=== PATIENT | female | born 1995 | race Caucasian/White ===

== ENCOUNTER 2020-01-18 17:06 | Emergency (ER) | payer MEDICAID ==
[~2020-01-18] VITALS: Ht 160 cm; Wt 70.3 kg
--- NOTE | 2020-01-18 18:00 | NUR ---
Patient ambulated with stable gait. A/Ox4. Patient came for c/o symptoms. Denies any n/v/d.
[2020-01-18 18:43] LABS: *BILIRUBIN,URIN NEGATIVE (NEGATIVE); *CLARITY,URINE CLEAR (CLEAR); *COLOR,URINE YELLOW (YELLOW); *KETONES,URINE NEGATIVE (NEGATIVE); *UROBILINOGEN,URINE 0.2 E.U./dl (NORMAL); LEUKOCYTE ESTERASE ,URINE NEGATIVE (NEGATIVE); NITRITE, URINE NEGATIVE (NEGATIVE); UGLUCOSE NEGATIVE (NEGATIVE)
[2020-01-18 18:44] LABS: *BLOOD, URINE NEGATIVE (NEGATIVE); *URINE HCG, QUAL NEGATIVE (NEGATIVE)
--- NOTE | 2020-01-18 19:05 | NUR ---
received hand off and SBAR from outgoing day shift RN pt is at RA crying and c/o abdominal pain VSS MD at bedside
--- NOTE | 2020-01-18 19:14 | NUR ---
ERMD at bedside for MSE
--- NOTE | 2020-01-18 19:17 | NUR ---
Report given to REESE Toscano
[2020-01-18] MEDS ORDERED: ONDANSETRON ODT 4 MG TAB.RAPDIS ONE (19:25)
[2020-01-18] MEDS ORDERED: HYDROCODONE/APAP 10-325 MG TABLET ONE (19:26)
--- NOTE | 2020-01-18 19:29 | NUR ---
pt ambulatory to the restroom
[2020-01-18] MEDS ORDERED: ONDANSETRON ODT 4 MG TAB.RAPDIS SL ONE (19:30)
[2020-01-18] MEDS ORDERED: HYDROCODONE/APAP 10-325 MG TABLET PO ONE (19:30)
--- NOTE | 2020-01-18 19:30 | NUR ---
PT states she has class tomorrow and prefers to go home pt able to take PO medications as ordered
--- NOTE | 2020-01-18 19:40 | NUR ---
Patient discharged to home in stable conditon. Written and verbal after care instructions given. Patient verbalizes understanding of instructions. ambulatory w/ stable gait all belongings w/ pt
[2020-01-18 19:43] VITALS: BP 120/80
== END 2020-01-18 19:45 | disposition home or self-care (01) ==
LOC: ER 17:08
DX: R10.32 Left lower quadrant pain (principal); R19.7 Diarrhea, unspecified; K21.9 Gastro-esophageal reflux disease without esophagitis
CPT/HCPCS: 84703; Q0162